=== PATIENT | male | born 1980 | race Caucasian/White ===

== ENCOUNTER 2018-11-26 16:15 | Emergency (ER) | payer MEDICAID ==
[~2018-11-26] VITALS: Ht 175.3 cm; Wt 103.9 kg
[2018-11-26 16:20] VITALS: Ht 175.3 cm; Wt 103.9 kg
[2018-11-26 16:46] LABS: BASOPHIL % 1.3 % (0-2); PLATELET COUNT 357 x10^3mcL (130-400); RED CELL DISTRIBUTION WIDTH 14.4 % (11.5-14.5)
[2018-11-26 16:56] LABS: CARBON DIOXIDE 31.9 mmol/L (21-32); CHLORIDE SERUM 100 mmol/L (98-107); CREATININE SERUM 1.1 mg/dL (0.7-1.3); GFR1 > 60 mL/min; POTASSIUM SERUM 4.1 mmol/L (3.5-5.1); SODIUM SERUM 140 mmol/L (136-145)
[2018-11-26 17:01] LABS: ALBUMIN 3.8 g/dL (3.4-5.0); ALKALINE PHOSPHATASE 79 U/L (46-116); BILIRUBIN TOTAL 0.4 mg/dL (0.20-1.00)
[2018-11-26 17:09] LABS: TOTAL PROTEIN, SERUM 8.5 g/dL (6.4-8.2)
[2018-11-26 17:11] LABS: GLUCOSE SERUM 104 mg/dL (74-106)
[2018-11-26 17:15] LABS: ALT/SGPT 26 U/L (16-63); AST/SGOT 25 U/L (15-37)
[2018-11-26 20:08] VITALS: BP 140/86
== END 2018-11-26 20:08 | disposition home or self-care (01) ==
LOC: ED 16:15
PROVIDERS: Emergency Medicine
DX: R07.89 Other chest pain (principal); I10 Essential (primary) hypertension; E78.00 Pure hypercholesterolemia, unspecified
CPT/HCPCS: 36415; Q0092